=== PATIENT | female | born 1950 | race Caucasian/White ===

== ENCOUNTER 2016-07-27 09:52 | Inpatient (IN) | payer MEDICARE, OTHER ==
--- NOTE | 2016-07-07 13:40 | NUR ---
JOINT CAMP: Patient attended Joint Camp at [facility] and patient is coming in for a full knee replacement. Patient comes from home and has 17 stairs to enter the home and none in the home. Unsure of who will help her at time of discharge. Patient has no history with Home Health or SNF. Patient has been connected with outpatient physical therapy before.
[2016-07-27] VITALS (10 sets, daily range): BP systolic 107–138; BP diastolic 57–90; PULSE 54–67; RESP 12–19; O2SAT 94–100
[~2016-07-27] VITALS: Ht 172.7 cm; Wt 83.7 kg
[2016-07-27] MEDS: Tranexamic Acid 100 mg/mL 10 mL Inj IV SCH ×2 (06:00→08:00)
[~2016-07-27 09:52] MED LIST: ATOR80TA77 PO; Bupivacaine Liposome 1.3% 20 mL Inj INFILTRATE ONE; CHOL200047 PO; CeFAZolin Inj 2 GM in IV Premix 1 EACH IV ONE; DIVA250T4 PO; LAMO200T2 PO; LITH600C PO; Lactated Ringer's 1,000 ML IV ONE; MAG PO; MULT-1018 PO; PROP10TA8 PO; Vancomycin Inj 1,000 MG in IV Premix 1 EACH IV ONE; ZINC PO; [UNRECOGNIZED DRUG - OTHER] PO
[2016-07-27] MEDS ORDERED: NAPR500T PO (10:17)
--- NOTE | 2016-07-27 11:30 | PCM.HPANE ---
Patient Data Surgeon Admitting Provider: Attending Provider:Jani Vallejo MD Primary Care Physician:Jeane Chan DO Other Provider:Bobby Walsh Anesthesia Reason for Visit Left Knee Arthritis Ht/WT & BMI Height (Feet): 5 Height (Inches): 8.00 Weight (Kilograms): 83.7 Body Mass Index 27.00 Allergies Coded Allergies: morphine (Verified Adverse Reaction, Severe, ITCHING, 07/23/16) Past Anesthesia History Anesthesia History: Denies:: Anesthesia Reactions, Fam Anesthesia Reaction, Fam Malignant Hypertherm, Malignant Hyperthermia Diabetes History Hx Diabetes?: No MRSA MRSA: No Medications Home Meds Incl Beta Bipin: No Reported Medications Naproxen (Naprosyn)500 Mg [id number] Mg PO BID PRN For Pain Ref 0 07/27/16 Multivitamin (Multi Vitamin Daily)1 Each Tablet1 Each PO DAILY 30 Days Ref 0 07/23/16 Divalproex 250 Mg Tablet.dr750 Mg PO HS Ref 0 Swallowed whole without chewing to avoid local irritation of the mouth and throat. 07/23/16 [ca/mag/zinc] No Conflict Check1 Tab PO DAILY 05/22/14 Cholecalciferol (Vitamin D3) (Vitamin D3)2,000 Unit Capsule2,000 Unit PO DAILY 05/21/14 Lamotrigine 200 Mg Qnxzif23 Mg PO DAILY 30 Days Ref 0 05/21/14 [place] Carbonate 600 Mg [id number] Mg PO DAILY PT ALTERNATES 300MG/DAY W/ 600MG/DAY 05/21/14 Atorvastatin Calcium 80 Mg Wzpphk36 Mg PO DAILY 30 Days Ref 0 05/21/14 Discontinued Reported Medications Propranolol HCl 10 Mg Hjtbgq20 Mg PO TID PRN PRN 90 Days Ref 0 07/23/16 Venlafaxine ER (Effexor XR)75 Mg Cap.er.24h75 Mg PO DAILY #30 CAPSULE Ref 0 05/21/14 Multivitamin (Daily Multiple Vitamin)1 Each Tablet1 Each PO DAILY 05/21/14 History History of ENT Problems?: Yes HEENT History: Positive for:: Sinus Problem (HX CHRONIC SINUSITIS) Hx of Heart Problems?: Yes Cardiovascular History: Positive for:: Hypertension (HYPERLIPIDEMIA) Other Cardiac History: HX RAYNAUD'S Hx of Respiratory Problem?: Yes Respiratory History: Positive for:: Asthma (HX OF) Cough (MAY HAVE URI/SINUS CONGESTION-FATIGUE,COUGH BUT NO FEVER) Use of C-PAP Machine (SNORES) Hx Neurologic Problems?: No Hx of GI Problems?: No Hx of Problems?: No Female Hx: Denies:: Currently (S/P OOPHORECTOMY) Skin History: Denies:: History Skin Disorders? Pressure Ulcers Hx Musculoskeletal Problems?: Yes Musculoskeletal History: Positive for:: Degenerative Joint Joint Replacement (S/P RT LATERAL UNI KNEE ARTHROPLASTY) Osteoarthritis (LT KNEE=CURRENT PROBLEM) Hx of Psycho/Social Problems?: Yes Psycho Social History: Positive for:: Anxiety Bipolar Disorder (POSSIBLY) Hx Depression Suicide Attempt (OD IN 2003, 2014; PT ADMITS TO PREVIOUS ATTEMPTS) Hx Surgeries?: No Hx Any Other Health Problems?: Yes Other History: Positive for:: Hospitalization (OD) Denies:: Cancer Endocrine Disease Thyroid Disease History Blood Transfusions: Denies:: Blood Transfuse Reaction Blood Transfusions Hx Diabetes: No Hx Alcohol Use: YesHx Substance Use: No Smoking Status: Former Smoker Have You Smoked inLast 12 mo: NoApprox How Many Cigarettes/day: 5YR HX Stop/Bang S-Snoring: Do You Snore Loudly: Yes T-Tired: feel tired, fatigued: Yes O-Obsered: Observed not breath: No P-Blood Pressure: treated: Yes B- Body Mass Index > 35 kg/m2: No A- Age over 50: Yes N- Neck Large Circumference: No G- Gender Male: No CLAUDE Total Score: 4 CLAUDE Risk Assessment: High Risk, =/>3 Yes CLAUDE Category 1: Yes Risk Assessment Category Category 1A: Patient has history of documented sleep apnea, and HAS NOT received any narcotic, sedative or anesthesia administration during this stay. Category 1B: Patient has history of documented sleep apnea, and HAS received any narcotic , sedative or anesthesia administration during this stay Category 2: Patient has SUSPECTED Obstructive Sleep Apnea, and HAS received any narcotic , sedative or anesthesia administration during this stay. Category 3: Patient has SUSPECTED Obstructive Sleep Apnea and HAS NOT received narcotic, sedative or anesthesia administration during this stay. Category 4: Outpatient in Procedural Areas with known sleep apnea or who screen positive for High Risk via the STOP/BANG questionnaire. Exam Exam Vital Signs Vital Signs Date Time Temp Pulse Resp B/P Pulse Ox O2 Delivery O2 Flow Rate FiO2 07/27/16 10:45 37.1 61 18 138/58 100 Room Air General Appearance: Alert HEENT/AIRWAY: MP 1 Lungs: Clear to Auscultation Heart: Exam Unremarkable Meds/Labs/Diagnostics Admission Meds Current Medications Lactated Ringer's 1,000 ml @ 120 mls/hr Q8H20M ONCE IV Last administered on 10:00; Start 07/27/16 at 05:00; Stop 07/27/16 at 13:19 Vancomycin/0.9 % Sod Chloride/ Premix (Vancomycin Inj/ IV Premix) 200 ml @ 133.333 mls/hr PREOP ONCE IV Last administered on 07/27/16 10:46; Start 07/27 at 06:00; Stop 07/27/16 at 07:29; Status DC Plan Impression Patient chart reviewed, patient interviewed and anesthestic plan with risks, benefits, and alternatives discussed, and informed consent obtained. NPO Status: tea at 0600 ASA Physical Status: ASA2 Mod Systemic Disease Anesthetic Plan: Regional Block, SAB Bene/Risks/Altern/Consents: Yes HP Complete Prior to Induction: Yes Jorge Vera MD Jul 27, 2016 11:30
[2016-07-27] MEDS ORDERED: Bupivacaine Liposome 1.3% 20 mL Inj ONE (12:58)
[2016-07-27] MEDS ORDERED: Bupivacaine-MPF 0.25%/EPI 30 mL Inj INFILTRATE ONE (13:58)
[2016-07-27] MEDS ORDERED: Gentamicin 40 mg/mL 2 mL Inj IRRIGATION ONE (13:58)
[2016-07-27] MEDS ORDERED: Bupivacaine Liposome 1.3% 20 mL Inj INFILTRATE ONE (13:58)
[2016-07-27] MEDS ORDERED: HYDROmorphone 1 mg/mL Inj IVPUSH PRN (14:05)
[2016-07-27] MEDS ORDERED: fentaNYL-PF 50 mCg/mL 2 mL Inj IVPUSH PRN (14:05)
[2016-07-27] MEDS ORDERED: Ondansetron 2 mg/mL 2 mL Inj IVPUSH PRN (14:05)
[2016-07-27] MEDS ORDERED: Lactated Ringer's 500 ML IV PRN (14:05)
[2016-07-27] MEDS ORDERED: Phenylephrine 10,000 mCg/mL Inj IVPUSH PRN (14:05)
[2016-07-27] MEDS ORDERED: EPHEDrine Sulfate 50 mg/mL Inj IVPUSH PRN (14:05)
[2016-07-27] MEDS ORDERED: Dexamethasone 4 mg/mL Inj IVPUSH PRN (14:05)
[2016-07-27] MEDS ORDERED: Lactated Ringer's 1,000 ML IV SCH (14:05)
[2016-07-27] MEDS ORDERED: Atropine 0.4 mg/mL Inj IVPUSH PRN (14:05)
[2016-07-27] MEDS ORDERED: MetoCLOpramide 5 mg/mL 2 mL Inj IVPUSH PRN (14:05)
--- NOTE | 2016-07-27 15:13 | PCM.ANEP1 ---
Post Anesthesia Phase 1 PACU Phase 1 Assessment Vital Signs Vital Signs Date Time Temp Pulse Resp B/P Pulse Ox O2 Delivery O2 Flow Rate FiO2 07/27/16 10:45 37.1 61 18 138/58 100 Room Air Anesthetic Administered: Regional Block, SAB Level of Alertness: Awake, talking SAAVEDRA's with Equal Strength: No Pain: No Nausea or Vomiting: No Oxygen Delivery: Room Air Lungs: Clear to Auscultation Summary temp 36.8 116/90 rr10 sat 95% awaker no complications Jorge Vera MD Jul 27, 2016 15:13
--- NOTE | 2016-07-27 15:14 | PCM.ANEP2 ---
Post Anesthesia Evaluation ASA/CMS Post Anesthesia VS in Patient's Normal Range?: Yes Resp Stable; Airway Patent?: Yes CV Function & Hydration Stable: Yes Mental Status Recovered?: Yes Pain control Satisfactory?: Yes N/V Control Satisfactory?: Yes Jorge Vera MD Jul 27, 2016 15:14
[2016-07-27 15:34] LABS: APPEARANCE,URINE CLEAR (CLEAR,HAZY); COLOR,URINE STRAW (YELLOW)
[2016-07-27 15:35] LABS: OCCULT BLOOD,URINE NEGATIVE (NEGATIVE); UROBILINOGEN,URINE NORMAL (NORMAL)
--- NOTE | 2016-07-27 16:21 | DRSVH ---
PROCEDURE: X-RAY LEFT KNEE, ONE OR TWO VIEWS ([id number]) INDICATIONS: POST PROTHESIS ALIGNMENT TECHNIQUE: 2 views of the knee acquired. COMPARISON: [facility], , XR KNEE ARTHRITIC SERIES LT, 03/10/2016, 13:18. FINDINGS: Bones: Patient is status post knee joint arthroplasty. Hardware components are in expected position s. No periprosthetic fractures. There are periprosthetic lucencies noted along the femoral componen t medially and posteriorly and along the distal tip of the tibial component. There is a sclerotic le sejal redemonstrated within the distal femoral shaft suggestive of a nonossifying fibroma. Soft tissues: Overlying postoperative changes are noted. IMPRESSION: 1. Postsurgical changes status post left knee prosthesis as described. Dictated by: Galileo Contreras M.D. on 07/27/2016 at 16:18 Approved by: Galileo Contreras M.D. on 07/27/2016 at 16:19
[2016-07-27] MEDS ORDERED: Propofol 10,000 mCg/mL 20 mL Inj ONE (16:22)
[2016-07-27] MEDS ORDERED: fentaNYL-PF 50 mCg/mL 2 mL Inj ONE (16:22)
[2016-07-27] MEDS ORDERED: Sodium Biphos-Phos 133 mL Enema RECTAL PRN (16:30)
[2016-07-27] MEDS ORDERED: Alum-Mag Hydrox-Simeth 30 mL Suspension PO PRN (16:30)
[2016-07-27] MEDS ORDERED: Magnesium Hydroxide 10 mL Oral Concentration PO PRN (16:30)
[2016-07-27] MEDS ORDERED: Ondansetron 8 mg ODT Tablet PO PRN (16:30)
[2016-07-27] MEDS ORDERED: LORazepam 0.5 mg Tablet PO PRN (16:30)
[2016-07-27] MEDS ORDERED: MetoCLOpramide 5 mg/mL 2 mL Inj IV PRN (16:30)
[2016-07-27] MEDS ORDERED: diphenhydrAMINE 25 mg Capsule PO PRN (16:30)
[2016-07-27] MEDS ORDERED: Ondansetron 2 mg/mL 2 mL Inj IV PRN (16:30)
[2016-07-27] MEDS ORDERED: oxyCODONE-Acetamin 5-325 mg Tablet PO PRN (16:30)
[2016-07-27] MEDS ORDERED: CeFAZolin 2 Gm/50 mL D5W Premix IV SCH (16:30)
--- NOTE | 2016-07-27 16:31 | NUR ---
Post OP Pt admitted to [facility] room 1019 at 1600 via bed. A&Ox3. Denies any pain. Hemovac clamped until 1999. Pressley catheter patent and draining to gravity. Pt can wiggle toes and Cap refill is WNL. Prince bandage is C/D/I. RA. APPLICATIONS CONSULTANT on . O2 sats WNL. Care continues.
[2016-07-27] MEDS: Lactated Ringer's 1,000 ML IV SCH (16:42)
[2016-07-27] MEDS: CeFAZolin Inj 2 GM in Dextrose 5% 50 ML IV SCH (17:02)
[2016-07-27] MEDS: Ketorolac 15 mg/mL Inj IV SCH (20:34)
[2016-07-27] MEDS: HYDROcodone-APAP 5-325 mg Tablet PO PRN ×3 (20:34→23:58)
[2016-07-27] MEDS: hydrOXYzine Pamoate 25 mg Capsule PO PRN (21:36)
[2016-07-27] MEDS ORDERED: lamoTRIgine 25 mg Tablet PO SCH (23:00)
[2016-07-27] MEDS ORDERED: Vancomycin Inj 1,250 MG in 0.9% Sodium Chloride 250 ML IV ONE (23:00)
--- NOTE | 2016-07-27 23:00 | NUR ---
med rec patient reports "i am bipolar, manic depressive. i need my home medications tonight." notified mamta IBARRA, reviewed med rec. home medications ordered as per med rec. awaiting pharmacy to send the medications.
--- NOTE | 2016-07-27 23:37 | OP ---
[address] [address] OPERATIVE REPORT PATIENT: RANJAN FLOR : 1950 MR#: [id number] ADMIT: 07/27/2016 JOB ID: [id number] DATE OF SURGERY: PREOPERATIVE DIAGNOSIS(ES): Advanced osteoarthritis, left knee, uncontrolled by conservative treatment options. POSTOPERATIVE DIAGNOSIS(ES): Advanced osteoarthritis, left knee, uncontrolled by conservative treatment options. PROCEDURE: Total knee replacement. SURGEON: Jani Vallejo MD. SMALL BUSINESS SALES REPRESENTATIVE: Yasmeen Galvez PA-C. COMPLICATIONS: None. INDICATIONS: This woman has had progressive disability symptoms uncontrolled by conservative treatment. She elects to proceed with a total knee replacement. She understands and accepts the potential for risks and complications, which include, but is not limited to infection, thromboembolic, neurovascular events, as well as potential for progressive arthritis in unresurfaced compartments and implant failure. Understanding this, she wishes to proceed. DESCRIPTION OF PROCEDURE: The patient was prepped and draped. An anteromedial approach was made. The patella was subluxed laterally, cut transversely, and sized with a 29 mm patellar component. Drill holes were made and a patellar protection plate was utilized. A drill hole was placed in distal femur, 5 degree valgus distal femoral cut was made. Bone fragments were removed. The femur was initially sized to an 8 femoral component, which was later downsized to a 7. Chamfer cuts and drill stabilization holes were made. Tibia was cut with the extramedullary tool. All meniscal tissue and osteophytes removed from the knee. It was sized to an E tibial component, fixed in appropriate position and rotation, and drill was utilized. Trial reduction was performed and a 10 mm polyethylene produced excellent alignment, soft tissue tension and tracking. Following this, the wound was irrigated with a large quantity of sterile irrigant. All meniscal tissue and osteophytes were carefully removed. Pressurized lavage was followed by pressurized cementation of the components and excess cement was removed during the curing process. Final construct was assembled. Tourniquet was let down. Hemostasis was achieved. Deep drain was left. The knee was lavaged with dilute Betadine solution and closed deep with #2 Quill deep, followed by 2-0 Vicryl, 3-0, and a 4-0 intracuticular stitch. Steri-Strips were applied. The patient was returned to the recovery room in stable condition after sterile dressing had been applied. There were no surgical complications.
[2016-07-27] MEDS: lamoTRIgine 25 mg Tablet PO SCH (23:50)
[2016-07-28 00:47] VITALS: BP 132/74; PULSE 59; RESP 18; O2SAT 97
[2016-07-28] MEDS: CeFAZolin Inj 2 GM in Dextrose 5% 50 ML IV SCH (00:59)
[2016-07-28] MEDS: Ketorolac 15 mg/mL Inj IV SCH ×2 (02:03→10:12)
[2016-07-28] MEDS: hydrOXYzine Pamoate 25 mg Capsule PO PRN ×4 (05:31→19:21)
[2016-07-28] MEDS: HYDROcodone-APAP 5-325 mg Tablet PO PRN ×5 (05:31→21:39)
[2016-07-28 06:11] VITALS: BP 138/68; PULSE 60; RESP 16; O2SAT 93
[2016-07-28 06:25] LABS: BASOPHILS % (AUTO) 0 % (0-3); EOSINOPHILS % (AUTO) 0.4 % (0-5); MONOCYTES % (AUTO) 10.6 % (4-12); Mean Corpuscular Hemoglobin 30.2 pg (27.0-35.0); Mean Corpuscular Volume 95.4 fL (81-100); NEUTROPHILS % (AUTO) 73.8 % (40-74); Platelet Count 154 bil/L (150-400)
[2016-07-28 08:12] VITALS: BP 120/68; PULSE 61; RESP 16; O2SAT 96
--- NOTE | 2016-07-28 08:46 | PCM.PNORTH ---
Subjective Date of Service: Jul 28, 2016 Visit Information: Reason for Visit Left Knee Arthritis Surgery/Surgery Date Post-Op Day # Date of Admission: Jul 27, 2016 at 16:21 Hospital Day # Subjective Foundation awake and alert and sitting up in bed. No complaints of pain at this time. Discussed participation with formal physical therapy and effects on discharge timing and then you. Encouraged patient to participate fully with physical therapy. Patient does have caregivers at home and will be going to a friend's house initially where there are 6 steps. I have asked patient to discuss this with physical therapy as soon as possible today. Patient has undergone a right UK in the recent past and is familiar with the recuperation process. Postop General: No Complaints, No Shortness of Breath, No Chest Pain, Good Appetite Pain Management: PO, IV Push Objective Exam Objective Orientation: Alert and oriented 3 and pleasant. Dressing: Interoperative dressing is clean dry and intact. Wound: Wound is not observed today. Compartments: Calf and thigh are soft and nontender. Mobility/sensation: Toe wiggle and sensation are intact and left lower extremity distally. MARLON hose: None. Bilateral thigh-high MARLON hose and he ordered today. Pressley: Present and working Drain: Present and working Gait: No gait yet as of this time with physical therapy. Vital Signs and I/O Vital Sign - Last Date Time Temp Pulse Resp B/P Pulse Ox O2 Delivery O2 Flow Rate FiO2 07/28/16 06:11 36.9 60 16 138/68 93 Room Air Intake and Output 07/27/16 07/27/16 07/28/16 Cumulative From/Thru 15:00 23:00 07:00 07/23/16 11:21 - 07/28/16 06:25 Intake Total 1370 ml 132 ml 1818 ml 3320 ml Output Total 330 ml 3675 ml 4005 ml Balance 1370 ml -198 ml -1857 ml -685 ml Intake Oral 563 ml 563 ml IV Total 1370 ml 132 ml 1255 ml 2757 ml Output Urine Total 280 ml 3650 ml 3930 ml Drainage Total 25 ml 25 ml Estimated Blood Loss 50 ml 50 ml # Bowel Movements 0 0 Lab & Micro Results Laboratory Tests Test 07/27/16 15:17 07/28/16 05:33 Urine Color Straw (YELLOW) Urine Appearance Clear (CLEAR,HAZY) Urine pH 7.0 (5.0-8.0) Urine Specific [place] 1.015 (1.003-1.035) Urine Protein Negativemg/dL (NEG,TRACE) Urine Glucose (UA) Negativemg/dL (NEGATIVE) Urine Ketones 15mg/dL (NEGATIVE) Urine Occult Blood Negative (NEGATIVE) Urine Nitrite Negative (NEGATIVE) Urine Bilirubin Negative (NEGATIVE) Urine Urobilinogen Normalmg/dL (NORMAL) Urine Leukocyte Esterase Negative (NEGATIVE) Urine RBC 0-2/hpf (0-2) Urine WBC 0-5/hpf (0-5) Urine Epithelial Cells Occasional/hpf (NONE-MOD) Urine Crystals None seen (NONE SEEN) Urine Bacteria None/hpf (NONE-FEW) Urine Hyaline Casts None/lpf (NONE) Urine Granular Casts None seen (NONE SEEN) Urine Waxy Casts None seen (NONE SEEN) Urine Red Blood Cell Casts None seen (NONE SEEN) Urine White Blood Cell Casts None seen (NONE SEEN) Urine Mucus None seen (None Seen) Urine Trichomonas None seen (NONE SEEN) Urine Yeast None (NONE SEEN) Urinalysis Comment None Urine Culture Reflexed Not indicated White Blood Count 5.6th/mm3 (3.8-10.1) Red Blood Count 4.10mil/mm3 (3.90-5.20) Hemoglobin 12.4g/dL (12.0-15.6) Hematocrit 39.1% (35.0-46.0) Mean Corpuscular Volume 95.4fL (81-100) Mean Corpuscular Hemoglobin 30.2pg (27.0-35.0) Mean Corpuscular Hemoglobin Concent 31.7% (32.0-37.0) Red Cell Distribution Width 13.0% (12.3-15.4) Platelet Count 154bil/L (150-400) Neutrophils (%) (Auto) 73.8% (40-74) Lymphocytes (%) (Auto) 15.0% (14-46) Monocytes (%) (Auto) 10.6% (4-12) Eosinophils (%) (Auto) 0.4% (0-5) Basophils (%) (Auto) 0% (0-3) Result Diagram: 07/28/16 0533 General Appearance: Alert, Oriented X3, Cooperative, No Acute Distress Extremities: No Compartment Syndrom Noted, Thigh & Calf Soft/Nontender Postop Sensory Motor: Distal Motor Intact, Movement in Toes, Distal Sensation Intact SURGICAL WOUND : Drain Location Body Site: Knee Wound Drainage Type: Hemovac Activity: Activity per PT, Ambulate with PT (weight-bear as tolerated on the left lower extremity using fragment with a walker.) Catheters: Urethral 2 Way Pressley Assessment & Plan Impression Patient is a 66-year-old female who is undergone elective left total knee arthroplasty performed on 07/27/2016. Patient has undergone a right unicompartmental knee arthroplasty in the recent past. She is in good spirits this morning and is aware of the recuperation process. We will along discussion regarding her recovery here in the hospital. She occasionally discharging to a friend's home which has 6 steps and we have encouraged her to participate with formal physical therapy. Problems: Plan Postop day # 1 from left total knee arthroplasty performed on 07/27/[address] Jani Vallejo. Weight bearing status: Weightbearing as tolerated on the left lower extremity Mobility aid: Front-wheeled walker Immobilization: None Precautions: Standard postoperative protocol for safety with assist when upright until cleared physical therapy for independent mobility. Physical therapy: Continue formal physical therapy for mobility, gait and safety. Patient has arranged outpatient physical therapy. Patient will discharged to a friend's home and she indicates there 6 steps necessary to enter and navigate the dwelling. Pain control: Continue by mouth pain medication. IV pain medication should be discontinued as soon as possible. DVT prophylaxis: ASA 81 mg EC by mouth twice a day 6 weeks postop for DVT prophylaxis. Wound care: Wound should be kept clean dry and covered until seen in office in 2 weeks. Pressley: Present and working. Pressley should be discontinued today on postop day 1 after first PT session. Dressing: Interoperative dressings clean dry and intact. Interoperative dressing will be changed postop dressing on postoperative day #2. Drain: Hemovac drain is present and working. Nursing should discontinue Hemovac drain today on postop day #1 at 24 hours postop. MARLON hose: None. Bilateral thigh-high MARLON hose will be ordered today. Left lower extremity MARLON hose may be applied on postop day 2 after interoperative bandage has been changed. Nursing communication: Nursing please discontinue Pressley today on postop day 1 after first PT session. Nursing please discontinue Hemovac drain today on postoperative day #1 at 24 hours postop. Nursing please apply right lower extremity thigh-high MARLON hose CA and apply left lower extremity MARLON hose tomorrow on postop day 2 after bandage change. 2-week follow-up: Follow-up in 2 weeks [facility] orthopedic clinic with medical provider on prearranged appointment for wound check and suture removal. 6-week follow-up: Follow-up in 6 weeks at [facility] orthopedic clinic with Dr. Jani Vallejo with left two-view knee x-rays on arrival. Plan: Patient will discharged on a before postop day #3 to a friend's home for period of time prior to returning to her own home. Orthopedics thanks hospitalist service for their help in the medical management of this patient. Discharge instructions: Weightbearing as tolerated on the left lower extremity using front-wheeled walker. Begin outpatient physical therapy as soon as possible post discharge. Keep wound clean dry and covered until seen in office in 2 weeks. Patient may shower and wound should be kept dry and covered. Discharge plan: Anticipated discharge on or before postop day #3 to a friend' s home as caregiver. VTE Prophylaxis: SCDs (SCD at right lower extremity only.), MARLON Hose ( bilateral thigh-high MARLON hose.), Other (ASA 81 mg SC by mouth twice a day 6 weeks postop for DVT prophylaxis) Renard Valentin PA-C Jul 28, 2016 08:43
[2016-07-28] MEDS: Lactated Ringer's 1,000 ML IV SCH (09:10)
[2016-07-28 12:32] VITALS: BP 119/70; PULSE 68; RESP 16; O2SAT 95
--- NOTE | 2016-07-28 13:00 | NUR ---
Home Meds Pt home medications sent home with pt friend this afternoon.
--- NOTE | 2016-07-28 13:35 | NUR ---
Evaluation completed. Please go to "Notes" then click on "Assessments and Notes" (bottom left corner of screen). Then select appropriate discipline tab on top of screen.
--- NOTE | 2016-07-28 13:58 | NUR ---
Pain management Patient states not wanting to take unnecessary pain medications. Surgeon and ortho suggested following PRN pain medication schedule following surgery to maintain tolerable pain level. Nursing administered PRN pain medications per patient request prior to PT evaluation. Patient states current pain level at 2/10, with 3/10 being tolerable pain level.
--- NOTE | 2016-07-28 15:26 | NUR ---
Social Work: Initial Assessment Data: See Initial Assessment. Pt is a 66 year old female admitted 07/27/16 for left knee arthritis per H&P. Pts insurance is Medicare with [facility] and PCP is Jeane Cahn DO. EMR Reviewed. SW met with pt at bedside to discuss discharge planning, SW role explained. Pt is alert and oriented x3. Pt resides in [place] in an apartment where she remains independent with ADLs. She will be staying at a friends house in [place] until able to navigate stairs into her apartment. Pt does not use any DME. Pt continues to drive. Pt has no HH or SNF history. Pt has no long-term care insurance or VA benefits. SW educated about DPOA/Advanced Directives and provided pt with paperwork. SW encouraged pt to bring copy of completed DPOA to the hospital. PT assessed patient and recommending home at this time. Pt informed Social Work that she already has outpt PT set up. Pts daughter Sujey [phone] to provide transport to [facility] at discharge. SW provided phone number and plan on whiteboard. No anticipated discharge needs. SW continues to follow. Assessment: Pt who is independent at baseline. Plan: Anticipate pt to discharge home with daughter to transport via POV. Pt to receive outpt services for PT. No anticipated discharge needs. SW continues to follow. NEELAM Chinchilla Addendum: 07/28/16 at 1527 by YOAN RAND SS Amended: Links added.
[2016-07-28 17:29] VITALS: BP 128/56; PULSE 71; RESP 16; O2SAT 96
--- NOTE | 2016-07-28 17:36 | NUR ---
Pain Pt seeming naive when coming to pain medications and deferring to RN for management. Per pt, reported 3/10 tolerable and typically at 1/10 pain level. Encouraged icing. Pt tolerated working with PT. Per PT in AM, pt knee buckled with first time OOB, mitchell remains in place at this time. Pt teaching performed re: need for mitchell to dc. Pt able to make needs known - Care continues. Addendum: 07/28/16 at 1755 by MAXIMINO OLIVO RN Pt agreeable to have mitchell out in AM
[2016-07-28 18:27] VITALS: BP 137/73; PULSE 70; O2SAT 96
--- NOTE | 2016-07-28 20:13 | NUR ---
Patient tolerated removal really well and everything went smoothly. Hemovac DC'd Addendum: 07/28/16 at 2014 by FLORENCIO DÍAZ Amended: Links added.
[2016-07-28] MEDS: lamoTRIgine 25 mg Tablet PO SCH (20:36)
[2016-07-29] MEDS: HYDROcodone-APAP 5-325 mg Tablet PO PRN ×8 (01:03→23:32)
[2016-07-29] MEDS: hydrOXYzine Pamoate 25 mg Capsule PO PRN ×7 (01:03→23:32)
--- NOTE | 2016-07-29 01:31 | NUR ---
Mobility VSS and ORTHOS WNL.Dressing CDI.Hemovac removed w/o incident by nrsg. student.Pt. turns well with assist yet needs enc. to take po analgesia and no
--- NOTE | 2016-07-29 01:40 | NUR ---
Pain Pain controlled with po analgesia yet needs enc. to take meds before pain gets severe.Has been compliant and turns with much less discomfort.VSS and ORTHOS WNL.Dressing CDI.Hemovac DCd by nrsg. student at approx. 2000 w/o incident.I&O qs.Sleeping intermittently and resting comfortably at this time.Will cont. to monitor.
[2016-07-29] MEDS: Lactated Ringer's 1,000 ML IV SCH ×2 (01:47→18:14)
[2016-07-29 05:25] VITALS: BP 125/73; PULSE 81; RESP 18; O2SAT 96
--- NOTE | 2016-07-29 08:47 | PCM.PNORTH ---
Subjective Date of Service: Jul 29, 2016 Visit Information: Reason for Visit Left Knee Arthritis Surgery/Surgery Date Post-Op Day # Date of Admission: Jul 27, 2016 at 16:21 Hospital Day # Subjective Foundation awake and alert this morning and supine in bed well positioned. No complaints of pain at this time. Discussed patient's participation with formal therapy yesterday and encourage patient to increase her distance today in anticipation of discharge to her friend's home tomorrow with her daughter as caregiver. Patient ultimately plans to return to her own home with her daughter as caregiver within a few days after discharge. Patient relates that she has set up her postoperative outpatient physical therapy. Postop General: No Complaints, No Shortness of Breath, No Chest Pain, Good Appetite Pain Management: PO Objective Exam Objective Orientation: Alert and oriented 3 and pleasant. Dressing: Interoperative dressing is clean dry and intact. Interoperative dressing is changed to postoperative dressing morning with ABD and fishnet with Silverlon. Wound: Surgical wound is clean dry and intact and in good condition. Compartments: Calf and thigh are soft and nontender. Mobility/sensation: Toe wiggle and sensation are intact of left lower extremity distally. MARLON hose: None. Order is replaced this morning for bilateral thigh-high MARLON hose. I have talked with patient's nurse and asked her to watch for this order and be sure these MARLON hose are placed today. Pressley: Present and working. Pressley will be discontinued first thing this morning. Drain: Absent Gait: Gait 20 feet yesterday on 07/28/2016 with physical therapy. Vital Signs and I/O Vital Sign - Last Date Time Temp Pulse Resp B/P Pulse Ox O2 Delivery O2 Flow Rate FiO2 07/29/16 05:25 36.7 81 18 125/73 96 Nasal Cannula 2.00 Intake and Output 07/28/16 07/28/16 07/29/16 Cumulative From/Thru 15:00 23:00 07:00 07/23/16 11:21 - 07/29/16 06:05 Intake Total 135 ml 1956 ml 1450 ml 6861 ml Output Total 2450 ml 1600 ml 8055 ml Balance 135 ml -494 ml -150 ml -1194 ml Intake Oral 1956 ml 1450 ml 3969 ml IV Total 135 ml 2892 ml Output Urine Total 2350 ml 1600 ml 7880 ml Drainage Total 100 ml 125 ml Estimated Blood Loss 50 ml # Bowel Movements 0 0 0 Result Diagram: 07/28/16 0533 General Appearance: Alert, Oriented X3, Cooperative, No Acute Distress Extremities: No Compartment Syndrom Noted, Thigh & Calf Soft/Nontender Postop Sensory Motor: Distal Motor Intact, Movement in Toes, Distal Sensation Intact SURGICAL WOUND : Drain Location Body Site: Knee Wound Drainage Type: Hemovac Activity: Activity per PT, Ambulate with PT (weight-bear as tolerated on the left lower extremity using fragment with a walker.) Catheters: Urethral 2 Way Pressley (Pressley will be discontinued first thing this morning on 07/29/2016.) Assessment & Plan Impression Patient is a very pleasant and willing 66-year-old female who is status post left total knee arthroplasty performed on 07/27/2016. Patient is working with physical therapy willingly and I believe we will be prepared for discharge to her friend's home on postop day 3 tomorrow, to 2016. Problems: Plan Postop day # 2 from left total knee arthroplasty performed on 07/27/[address] Jani Vallejo. Weight bearing status: Weightbearing as tolerated on the left lower extremity Mobility aid: Front-wheeled walker Immobilization: None Precautions: Standard postoperative protocol for safety with assist when upright until cleared physical therapy for independent mobility. Physical therapy: Continue formal physical therapy for mobility, gait and safety. Patient has arranged outpatient physical therapy. Patient will discharged to a friend's home with her daughter as caregiver and she indicates there 6 steps necessary to enter and navigate the dwelling. Patient plans to leave her friend's home within a few days and she and her daughter will return to the patient's house where she will continue to have her daughter his caregiver. Pain control: Continue by mouth pain medication. DVT prophylaxis: ASA 81 mg EC by mouth twice a day 6 weeks postop for DVT prophylaxis. Wound care: Wound should be kept clean dry and covered until seen in office in 2 weeks. Pressley: Present and working. Pressley will be removed first thing this morning. Dressing: Interoperative dressings clean dry and intact. Interoperative dressing is changed postop type dressing with ABD with fishnet with Silverlon. Drain: Absent MARLON hose: None. Order is replaced this morning for bilateral thigh-high MARLON hose. I have talked with patient's nurse and asked her to watch for this order and be sure these MARLON hose are placed today. Nursing communication: Nursing please discontinue Pressley today as soon as possible. Nursing please measured for and apply bilateral thigh-high MARLON hose. 2-week follow-up: Follow-up in 2 weeks [facility] orthopedic clinic with medical provider on prearranged appointment for wound check and suture removal. 6-week follow-up: Follow-up in 6 weeks at [facility] orthopedic clinic with Dr. Jani Vallejo with left two-view knee x-rays on arrival. Plan: Patient will discharged to a friend's home with daughter as caregiver on postop day 3, 07/30/2016. Patient plans to return to her own home with her daughter as caregiver within a few days after discharge. Discharge instructions: Weightbearing as tolerated on the left lower extremity using front-wheeled walker. Begin outpatient physical therapy as soon as possible post discharge. Keep wound clean dry and covered until seen in office in 2 weeks. Patient may shower on or after postoperative day #4 wound is clean and dry.. Discharge plan: Anticipated discharge on postop day #3, 07/30/2016 to a friend's home with daughter as caregiver. VTE Prophylaxis: SCDs (SCD at right lower extremity only.), MARLON Hose ( bilateral thigh-high MARLON hose.), Other (ASA 81 mg SC by mouth twice a day 6 weeks postop for DVT prophylaxis) Renard Valentin PA-C Jul 29, 2016 08:47
[2016-07-29 11:48] VITALS: BP 138/66; PULSE 70; RESP 14; O2SAT 94
--- NOTE | 2016-07-29 12:00 | NUR ---
Void Pressley dc'd by SN at 0845 - pt instructed and encouraged on hydrating and the need to void within 4hrs. At 1145, pt done working with PT and back in bed. Able to void >400cc. No issues. Stated emptied bladder. Care continues.
[2016-07-29 12:39] VITALS: BP 135/76; PULSE 70; RESP 16; O2SAT 96
--- NOTE | 2016-07-29 14:25 | NUR ---
PAIN & MOBILITY P: Pt states knee pain r/t lack of support beneath the knee following surgery. I: Nursing staff encouraged pt to relax knee joint and allow mattress to support joint and maintain full ROM. Pt also requested PRN pain medication prior to PT session. E: Pt allowed knee joint to relax and will evaluate pain level.
--- NOTE | 2016-07-29 15:29 | NUR ---
Social Work- Readiness for Discharge: Data: EMR reviewed. Pt is on day 2 of hospitalization for left knee arthritis per H&P. PT worked with pt and recommended outpt services. Pt is agreeable to this and already has services in place. Pt's friend to provide transport home at discharge. No anticipated discharge needs. SW will continue to follow if needs arise. Assessment: Pt who is independent at baseline. Plan: Pt to receive outpt PT services. Friend to transport home at discharge via POV. No anticipated discharge needs. SW will continue to follow if needs arise. NEELAM Chinchilla
[2016-07-29 15:40] VITALS: BP 149/74; PULSE 72; O2SAT 91
--- NOTE | 2016-07-29 15:41 | NUR ---
These vitals were taken right after PT Addendum: 07/29/16 at 1541 by FLORENCIO DÍAZ Amended: Links added.
[2016-07-29] MEDS: lamoTRIgine 25 mg Tablet PO SCH (19:54)
[2016-07-29 19:58] VITALS: BP 146/74; PULSE 73; RESP 18; O2SAT 92
--- NOTE | 2016-07-30 01:39 | NUR ---
Mobility Up with SBA and FWW and moving well.Much improved pain control noted with 2 vicoden and vistaril every 4-5 hrs.VSS and ORTHOS WNL.Dressing CDI.Sleeping soundly at this time and resting comfortably.Will cont. to monitor.
[2016-07-30] MEDS: HYDROcodone-APAP 5-325 mg Tablet PO PRN ×5 (04:44→21:05)
[2016-07-30] MEDS: hydrOXYzine Pamoate 25 mg Capsule PO PRN ×3 (04:44→21:07)
[2016-07-30 04:53] VITALS: BP 145/77; PULSE 63; RESP 16; O2SAT 91
--- NOTE | 2016-07-30 08:42 | PCM.PNORTH ---
Subjective Date of Service: Jul 30, 2016 Visit Information: Reason for Visit Left Knee Arthritis Surgery/Surgery Date left total knee arthroplasty 07/27/2016 Post-Op Day # 3 Date of Admission: Jul 27, 2016 at 16:21 Hospital Day # Subjective Patient is progressing well physical therapy. She walked 100 feet yesterday and 75 feet this morning pain is controlled with [place]. She will be discharged to a friend's house. Her daughter can pick her up after work today. Patient is outpatient physical therapy scheduled to start tomorrow. Patient is a bit nervous about going home but she is performing quite well. Postop General: No Complaints, No Shortness of Breath, No Chest Pain, Good Appetite Pain Management: PO Objective Exam Objective Patient is seen lying in bed. Vital Signs and I/O Vital Sign - Last Date Time Temp Pulse Resp B/P Pulse Ox O2 Delivery O2 Flow Rate FiO2 07/30/16 04:53 36.6 63 16 145/77 91 Room Air 07/29/16 05:25 2.00 Intake and Output 07/29/16 07/29/16 07/30/16 Cumulative From/Thru 15:00 23:00 07:00 07/23/16 11:21 - 07/30/16 06:31 Intake Total 1600 ml 1200 ml 9661 ml Output Total 1950 ml 2000 ml 76509 ml Balance -350 ml -800 ml -2344 ml Intake Oral 1600 ml 1200 ml 6769 ml IV Total 2892 ml Output Urine Total 1950 ml 2000 ml 96103 ml Drainage Total 125 ml Estimated Blood Loss 50 ml # Bowel Movements 0 0 0 Result Diagram: 07/28/16 0533 General Appearance: Alert, Oriented X3, Cooperative, No Acute Distress Extremities: Distal Pulses Palpable, No Compartment Syndrom Noted Postop Sensory Motor: Distal Motor Intact, NVI Distally SURGICAL WOUND : Wound Location/Description Left knee: Dressing is clean dry and intact. Thigh-high MARLON hose are in place. There is a little skin irritation at the inner thigh. Stocking is folded down 3-4 inches which provides relief. Drain Location Body Site: Knee Activity: Activity per PT, Ambulate with PT (weight-bear as tolerated on the left lower extremity using fragment with a walker.) Catheters: None Assessment & Plan Impression Status post left total knee arthroplasty POD #3 Problems: Plan Weightbearing: Weightbearing as tolerated with walker DVT prophylaxis: aspirin 81 mg twice a day 6 weeks Physical therapy for transfers, progressive ambulation, therapeutic exercise Wound care: Dressing is clean dry and intact Thigh-high MARLON hose are in place. Patient is progressing quite well with physical therapy. She is a little nervous about going home but physically is performing well. She may be discharged home today. Discharge instructions are reviewed with the patient. Discharge plan: Discharge home today to a friend's home. Start outpatient physical therapy tomorrow as scheduled Follow-up plan: In 2 weeks at [facility] with STACEY for wound check and at [address] Vallejo with x-rays Pain Management: [place], Vistaril VTE Prophylaxis: SCDs, MARLON Hose, Other (ASA 81 mg BID) Resuscitation Status: CPR: Attempt Resuscitation [place] PA-C Jul 30, 2016 08:42
--- NOTE | 2016-07-30 09:04 | NUR ---
Evaluation completed. Please go to "Notes" then click on "Assessments and Notes" (bottom left corner of screen). Then select appropriate discipline tab on top of screen.
--- NOTE | 2016-07-30 10:17 | PCM.DIORTH ---
Ortho Discharge Instruction Date of Service: Jul 30, 2016 Dates of Hospitalization Date of Hospital Admission Jul 27, 2016 at 16:21 Providers Admitting Physician: Jani Vallejo MD Primary Care Physician: Jeane Chan DO Attending Physician: Jani Vallejo MD Diet Discharge Diet: No restrictions Activity Discharge Activity-General: Balance rest and activity, Elevate & ice extremity Left Lower Extremity: Weight Bearing as tolerated Discharge Assist Device: Front Wheeled Walker Dressing and Incisional Care Discharge Dressing Care: Keep dressing clean, dry & intact Discharge Hygiene: May shower (see instructions below) Additional Instructions Discharge Instructions Weightbearing: Weightbearing as tolerated with walker DVT prophylaxis: aspirin 81 mg twice a day 6 weeks Wound care: Dressing is clean dry and intact. Change dressing every 1-2 days. Thigh-high MARLON hose for 1 month after surgery to help control swelling. Rolled the top edge down flat if the top of the stocking is irritating to the skin of the thigh The patient may shower if the wound has no drainage present. Wound may be uncovered to shower. Let soap and water run over the wound, pat dry and apply a new dressing. Start outpatient physical therapy tomorrow as scheduled Activity: be up and about every hour that you are awake - either walking, or doing knee exercises you have learned from PT. Push yourself with bending and straightening. Ice the knee 6-10 times a day Prescriptions: [place] for pain medicine, Vistaril for spasms/restlessness Follow Up Plan Follow Up Plan Follow-up plan: In 2 weeks at [facility] with STACEY for wound check and at [address] Vallejo with x-rays Call your provider for: Fever, Chills, Shortness of breath, Vomitting, Drainage at incision, Wound redness Ethel Cuevas PA-C Jul 30, 2016 10:17
[2016-07-30] MEDS ORDERED: HYDR-3797 PO (10:20)
[2016-07-30] MEDS ORDERED: HYDR-4003 PO (10:20)
[2016-07-30] MEDS ORDERED: ASPI-973 PO (10:20)
--- NOTE | 2016-07-30 10:23 | PCM.DC.ORT ---
Discharge Summary Date of Service: Jul 30, 2016 Date of Hospital Admission: Jul 27, 2016 at 16:21 Date of Surgery: Jul 27, 2016 Date of Discharge: Jul 30, 2016 Reason for Hospitalization: Left knee arthritis Procedures Performed: Left total knee arthroplasty Hospital Course: The patient was admitted to the hospital on 07/27/2016 and underwent the above procedure. Antibiotic prophylaxis consisting of Ancef and vancomycin. The surgeon was Dr. Vallejo. A Pressley was placed perioperatively. Patient tolerated the procedure well and was transferred to recovery room in stable condition. Pressley was discontinued on postop day 1. Patient had physical therapy to work on ambulation and transfers. Weightbearing as tolerated with walker. Pain was managed with [place], and Vistaril. DVT prophylaxis: Aspirin 81 mg twice a day. Patient progressed well with physical therapy and on POD-3 was discharged to the home of a friend who will assist in her care. Outpatient physical therapy is scheduled to start tomorrow. Follow-up: at [facility] 2 weeks postop for wound check and at [address] Vallejo with x-ray Diagnosis at Time of Discharge Status post left total knee arthroplasty Problems: Disposition: Discharged home in Stable condition Discharge Instructions: Weightbearing: Weightbearing as tolerated with walker DVT prophylaxis: aspirin 81 mg twice a day 6 weeks Wound care: Dressing is clean dry and intact. Change dressing every 1-2 days. Thigh-high MARLON hose for 1 month after surgery to help control swelling. Rolled the top edge down flat if the top of the stocking is irritating to the skin of the thigh The patient may shower if the wound has no drainage present. Wound may be uncovered to shower. Let soap and water run over the wound, pat dry and apply a new dressing. Start outpatient physical therapy tomorrow as scheduled Activity: be up and about every hour that you are awake - either walking, or doing knee exercises you have learned from PT. Push yourself with bending and straightening. Ice the knee 6-10 times a day Prescriptions: [place] for pain medicine, Vistaril for spasms/restlessness Follow-up [facility] with PA in 2 weeks for wound check, and at [address] Vallejo with x-ray ([ca/mag/zinc]) 1 TAB PO DAILY Aspirin (Aspirin) 81 Mg Tablet 81 MG PO BID for 6 weeks after surgery Atorvastatin Calcium (Atorvastatin Calcium) 80 Mg Tablet 80 MG PO DAILY Cholecalciferol (Vitamin D3) (Vitamin D3) 2,000 Unit Capsule 2,000 UNIT PO DAILY Divalproex (Divalproex) 250 Mg Tablet.dr 750 MG PO HS Swallowed whole without chewing to avoid local irritation of the mouth and throat. Hydrocodone-Acetaminophen 5-325 mg (Hydrocodone-Acetaminophen 5-325 mg) 1 Each Tablet 1-2 TABLET PO Q4H PRN PRN For Moderate Pain Max 8 per day Hydroxyzine Pamoate (HydrOXYzine Pamoate) 25 Mg Capsule 1 MG PO Q4H PRN PRN for spasms, restlessness Lamotrigine (Lamotrigine) 200 Mg Tablet 50 MG PO DAILY [place] Carbonate ([place] Carbonate) 600 Mg Capsule 300-600 MG PO DAILY PT ALTERNATES 300MG/DAY W/ 600MG/DAY Multivitamin (Multi Vitamin Daily) 1 Each Tablet 1 EACH PO DAILY Ethel Cuevas PA-C Jul 30, 2016 10:23
[2016-07-30] MEDS: Lactated Ringer's 1,000 ML IV SCH (11:10)
[2016-07-30 11:49] VITALS: BP 138/73; PULSE 72; RESP 14; O2SAT 94
--- NOTE | 2016-07-30 14:00 | NUR ---
Anxiety about discharge P: Patient states anxiety r/t transfer into home. Friends home has stairs without handrail, and personal home has 17 stairs with handrail. I: PT is working with patient to manage stairs safely. E: Awaiting discharge per PT recommendation.
--- NOTE | 2016-07-30 16:46 | NUR ---
SOcial Work Discharge: SW met with patient at bedside to discuss discharge plan. Order for discharge acknowledged. Patient states residing home alone but to discharge to [facility] for additional care and support. Patient has stairs at home and PT assessing patient further for stair training prior to discharge home. SW will continue to follow up with continued PT course to ensure home safety at discharge. PLAN: Home with possible outpt PT pending clinical course Jt RICHTER
[2016-07-30 17:03] VITALS: BP 149/76; PULSE 71; RESP 18; O2SAT 96
[2016-07-30 20:08] VITALS: BP 145/68; PULSE 73; RESP 18; O2SAT 97
[2016-07-30] MEDS: lamoTRIgine 25 mg Tablet PO SCH (20:59)
[2016-07-31] MEDS: hydrOXYzine Pamoate 25 mg Capsule PO PRN ×3 (01:21→12:36)
[2016-07-31] MEDS: HYDROcodone-APAP 5-325 mg Tablet PO PRN ×4 (01:22→12:36)
[2016-07-31] MEDS: Lactated Ringer's 1,000 ML IV SCH (03:50)
[2016-07-31 04:30] VITALS: BP 136/75; PULSE 81; RESP 16; O2SAT 96
--- NOTE | 2016-07-31 04:54 | NUR ---
Pain / anxiety Knee pain adequately controlled with Vicodin and vistaril, able to safely mobilize to BSC with SBA and FWW. Anxiety related to d/c mild, able to express all needs. Hourly rounding ongoing.
--- NOTE | 2016-07-31 08:38 | PCM.PNORTH ---
Subjective Date of Service: Jul 31, 2016 Visit Information: Reason for Visit Left Knee Arthritis Surgery/Surgery Date left total knee arthroplasty 07/27/2016 Post-Op Day # 4 Date of Admission: Jul 27, 2016 at 16:21 Hospital Day # Subjective Patient reports she is feeling better today she will see physical therapy at 10 AM and then plans to go home after that. Today she is able to demonstrate straight leg raise. She complains of the fish stockings underneath the MARLON hose Postop General: No Complaints, No Shortness of Breath, No Chest Pain, Good Appetite Pain Management: PO Objective Exam Objective Patient is seen sitting up in bed Vital Signs and I/O Vital Sign - Last Date Time Temp Pulse Resp B/P Pulse Ox O2 Delivery O2 Flow Rate FiO2 07/31/16 04:30 37.0 81 16 136/75 96 Room Air 07/29/16 05:25 2.00 Intake and Output 07/30/16 07/30/16 07/31/16 Cumulative From/Thru 15:00 23:00 07:00 07/23/16 11:21 - 07/31/16 04:30 Intake Total 1000 ml 600 ml 89562 ml Output Total 900 ml 1070 ml 03892 ml Balance 100 ml -470 ml -2714 ml Intake Oral 1000 ml 600 ml 8369 ml IV Total 2892 ml Output Urine Total 900 ml 1070 ml 26664 ml Drainage Total 125 ml Estimated Blood Loss 50 ml # Bowel Movements 0 0 0 Result Diagram: 07/28/16 0533 General Appearance: Alert, Oriented X3, Cooperative, No Acute Distress Extremities: Distal Pulses Palpable, No Compartment Syndrom Noted, Thigh & Calf Soft/Nontender Postop Sensory Motor: Distal Motor Intact, NVI Distally SURGICAL WOUND : Wound Location/Description Left knee: The patient has stockings are removed. Dressing was changed with Silverlon and ABDs. There is dried serous drainage on the old bandage. Impression stockings were reapplied. Dressing & Drainage Status: Changed Activity: Activity per PT, Ambulate with PT (weight-bear as tolerated on the left lower extremity using fragment with a walker.) Catheters: None Assessment & Plan Impression Status post left total knee arthroplasty Problems: Plan Weightbearing: Weightbearing as tolerated with walker DVT prophylaxis: aspirin 81 mg twice a day 6 weeks Physical therapy for transfers, progressive ambulation, therapeutic exercise Wound care: Change dressing every 1-2 days as needed Thigh-high MARLON hose are in place. Discharge instructions are reviewed with the patient. Discharge plan: Discharge home today to a friend's home. Start outpatient physical therapy next week Follow-up plan: In 2 weeks at [facility] with STACEY for wound check and at [address] Vallejo with x-rays Pain Management: [place], Vistaril VTE Prophylaxis: SCDs, MARLON Hose, Other (ASA 81 mg BID) Resuscitation Status: CPR: Attempt Resuscitation [place] PA-C Jul 31, 2016 08:38
--- NOTE | 2016-07-31 12:54 | NUR ---
Discharge Pt worked with PT this morning. Discharge home with family fried via private vehicle. All hard copy of RX in folder with pt. Pt has f/u apts scheduled prior to surgery. Pt feels comfortable with the amount of steps she needs to go home to. Pt given extra bandages to replace her bandage after she showers. All discharge teaching and instructions done with pt. All questions answered. IV d/c'd intact. No items in the safe or in the pharmacy.
== END 2016-07-31 12:45 | disposition home or self-care (01) | DRG 470 ==
LOC: SAS 09:52 → OSC 16:21
PROVIDERS: ADMIT Orthopaedic Surgery; ATTEND Orthopaedic Surgery
PROC: 0SRD0J9 Replacement of Left Knee Joint with Synthetic Substitute, Cemented, Open Approach (ICD-10-PCS; principal; 2016-07-27 12:45)
DX: M17.12 Unilateral primary osteoarthritis, left knee (principal); I10 Essential (primary) hypertension; E78.5 Hyperlipidemia, unspecified; Z87.891 Personal history of nicotine dependence; Z96.651 Presence of right artificial knee joint